=== PATIENT | male | born 1965 | race Caucasian/White ===

== ENCOUNTER → 2017-04-06 | Outpatient (CLI) | payer OTHER ==
--- NOTE | 2017-04-06 16:19 | US ---
EXAM DESCRIPTION: Venous,Lower Extremity RT CLINICAL HISTORY: PAIN IN RIGHT LEG COMPARISON: None Available. TECHNIQUE: Right lower extremity venous duplex FINDINGS: There is no DVT identified. There is normal color flow observed with good flow augmentation. All deep veins compress normally. IMPRESSION: Negative for DVT Electronically signed by: Jayy Arthur MD 04/06/2017 4:18 PM [employer]
== END | disposition home or self-care (01) ==
LOC: CT 15:29
PROVIDERS: ATTEND Family Medicine
DX: M79.661 Pain in right lower leg (principal)